=== PATIENT | male | born 1950 | race Caucasian/White ===

== ENCOUNTER → 2019-04-21 | Outpatient (CLI) | payer MEDICARE ==
--- NOTE | 2019-04-21 10:30 | US ---
EXAMINATION TYPE: US carotid duplex BILAT DATE OF EXAM: 04/21/2019 COMPARISON: NONE CLINICAL HISTORY: I65.23 Occlusion and stenosis of bilateral carotid. Stenosis EXAM MEASUREMENTS: RIGHT: Peak Systolic Velocity (PSV) cm/sec ----- Right CCA: 74.4 ----- Right ICA: 80.2 ----- Right ECA: 112.5 ICA/CCA ratio: 0.9 RIGHT: End Diastole cm/sec ----- Right CCA: 28.5 ----- Right ICA: 31.7 ----- Right ECA: 25.2 LEFT: Peak Systolic Velocity (PSV) cm/sec ----- Left CCA: 91.5 ----- Left ICA: 94.7 ----- Left ECA: 73.7 ICA/CCA ratio: 0.8 LEFT: End Diastole cm/sec ----- Left CCA: 33.3 ----- Left ICA: 46.2 ----- Left ECA: 28.5 VERTEBRALS (direction of flow): Right Vertebral: Antegrade Left Vertebral: Antegrade Rhythm: Normal No significant stenosis seen IMPRESSION: Mild degree of grayscale atheromatous plaquing with no sonographically evident hemodynam ically significant stenosis within either visualized carotid arterial system. Criteria for Assigning % of Stenosis / Diameter reduction (Estimation based on the indirect measurements of the internal carotid artery velocities (ICA PSV). 1. Normal (no stenosis)=ICA PSV < 125 cm/s: ratio < 2.0: ICA EDV<40 cm/s. 2. Less than 50% stenosis=ICA PSV < 125 cm/s: ratio < 2.0: ICA EDV<40 cm/s. 3. 50 to 69% stenosis=ICA PSV of 125 to 230 cm/s: ration 2.0 ? 4.0: ICA EDV 40-100 cm/s. 4. Greater than 70% stenosis to near occlusion= ICA PSV > 230 cm/s: ratio > 4.0: ICA EDV > 100 cm/s. 5. Near occlusion= ICA PSV velocities may be low or undetectable: variable ratio and ICA EDV. 6. Total occlusion=unable to detect flow.
== END | disposition home or self-care (01) ==
LOC: RADUSWWP 09:22
PROVIDERS: ATTEND Internal Medicine
DX: I67.2 Cerebral atherosclerosis (principal)
CPT/HCPCS: 93880

== ENCOUNTER → 2022-10-12 | Outpatient (CLI) | payer MEDICARE ==
[~2022-10-12] MED LIST: REGADENOSON 0.4 MG/5 ML SYRINGE IV PRN
--- NOTE | 2022-10-12 14:22 | NM ---
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 The patient received 0.4mg Lexiscan, 24.0 mCi Tc 99m Sestamibi - Stress images obtained [address] injection FINDINGS: Review of stress and rest SPECT images demonstrates fixed perfusion defect throughout the entire infe rior wall as well as the mid to basal inferoseptal wall. No discrete reversibility is seen. Gated preet lysis shows normal wall motion with an estimated left ventricular ejection fraction of 65 %. TID IMPRESSION: Large area of fixed perfusion defect along the inferior wall suspected to be on the basis of diaphragmatic attenuation artifact rather than old infarct. Clinically correlate. No discrete rev ersibility is seen.
--- NOTE | 2022-10-13 11:54 | CA ---
Lexiscan Nuclear Stress Test Report Name: Mazin Shah Exam Date: 10/12/2022 10:34 Exam Location: [place] Stress Ht (in): 66 Wt (lb): 192 BSA: 1.97 Ordering Phys: Criss Thomas MD Referring Phys: Martha, Technologist: Paolo Rivera Age: 72 Gender: M : 1950 Procedure CPT: Indications: I25.10 ATHSCL HEART DISEASE OF [place] CORONARY ART ICD-10 Codes: Patient History: ELEVATED CHOLESTEROL, FAMILY HX OF HEART DISEASE Medications: LIPITOR,,,,,, ZETIA,,,,,, VIT D,,,,,, K2,,,,,, B12,,,,,, ZINC,,,,, Meds past 24 hrs: Pretest Chest Pain: STRESS TEST Lexiscan Protocol Exercise Duration (min:sec): 01:[address] Depressions (mm): Angina Score: Byers Score: Resting HR (bpm): 64 Peak HR (bpm): 102 Resting BP (mmHg): 115 / 76 Peak BP (mmHg): 114 / 77 MPHR: 148 Target HR: 126 % MPHR: 69 METS: 1.0 Total Dose: Peak Dose: Atropine: Double Product: 83794 BP Response: Stress Termination: INFUSION COMPLETE Stress Symptoms: NO SYMPTOMS Stress Summary: ECG ANALYSIS Resting ECG: Stress ECG: CONCLUSIONS Nondiagnostic electrocardiogram stress testing Dr. Anthony Millard MD (Electronically Signed) Final Date: 13 October 2022 11:53
== END | disposition home or self-care (01) ==
LOC: RADNMMAIN 08:20
PROVIDERS: ATTEND Internal Medicine
DX: I25.10 Atherosclerotic heart disease of native coronary artery without angina pectoris (principal)
CPT/HCPCS: 93017; 78452; A9500; J2785

== ENCOUNTER → 2023-03-23 | Outpatient (CLI) | payer MEDICARE ==
--- NOTE | 2023-03-24 11:07 | CA ---
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 LV Systolic Volume MOD 4C 53.6 cm??? LV Ejection Fraction MOD 4C 47.2 % LV Cardiac Index MOD 4C 1646.5 cm???/min???m??? LV Diastolic Length 4C 8.0 cm LV Systolic Length 4C 6.9 cm LV Diastolic Volume MOD 2C 77.5 cm??? LV Systolic Volume MOD 2C 33.3 cm??? LV Ejection Fraction MOD 2C 57.0 % LV Cardiac Index MOD 2C 1515.1 cm???/min???m??? LV Diastolic Length 2C 7.7 cm LV Systolic Length 2C 6.5 cm LA Volume 39.3 cm??? 18 - 58 / 22 - 52 cm??? LA Volume Index 19.2 cm???/m??? 16 - 28 cm???/m??? M-MODE Aortic Root Diameter MM 3.9 cm MV E Point Septal Separation 0.5 cm AV Cusp Separation MM 2.1 cm DOPPLER AV Peak Velocity 121.5 cm/s AV Peak Gradient 5.9 mmHg MV Area PHT 3.0 cm??? Mitral E Point Velocity 90.0 cm/s Mitral A Point Velocity 54.4 cm/s Mitral E to A Ratio 1.7 MV Deceleration Time 251.1 ms MV E' Velocity 7.6 cm/s Mitral E to MV E' Ratio 11.9 TR Peak Velocity 178.5 cm/s TR Peak Gradient 12.7 mmHg Right Ventricular Systolic Press 17.7 mmHg FINDINGS Left Ventricle Left ventricular ejection fraction is estimated at 55-60 %. Left ventricular cavity size normal. Left ventricular wall thickness normal. Right Ventricle Mild right ventricular dilatation. Right ventricular systolic pressure within normal limits. Right Atrium Normal right atrial size. Left Atrium Normal left atrial size. Mitral Valve Structurally normal mitral valve. Trace mitral regurgitation. Aortic Valve Trileaflet aortic valve. No aortic valve stenosis or regurgitation. Tricuspid Valve Structurally normal tricuspid valve. Trace tricuspid regurgitation. Pulmonic Valve Pulmonic valve not well visualized. Pericardium No pericardial effusion. Aorta Mild aortic dilatation at the level of the sinuses of valsalva 39 mm CONCLUSIONS Technically difficult study for interpretation Normal LV systolic function Previewed by: Dr. Anthony Millard MD (Electronically Signed) Final Date: 24 March 2023 11:07
== END | disposition home or self-care (01) ==
LOC: RADECHMAIN 13:27
PROVIDERS: ATTEND Internal Medicine
DX: I71.21 Aneurysm of the ascending aorta, without rupture (principal)
CPT/HCPCS: 93306

== ENCOUNTER → 2023-09-07 | Outpatient (CLI) | payer MEDICARE ==
--- NOTE | 2023-09-07 13:32 | CT ---
EXAMINATION TYPE: CT angio chest DATE OF EXAM: 09/07/2023 12:58 PM COMPARISON: None HISTORY: Aneurysm of ascending aorta w/o rupture. CT DLP: 790.6 mGycm Automated exposure control for dose reduction was used. CONTRAST: CTA scan of the thorax is performed with IV Contrast, patient injected with 100 mL of Isovue 370, pul monary embolism protocol. . FINDINGS: There is no suspicious lung mass or nodule. There is no abnormal airspace/consolidative density or abnormal interstitial density. There is no pleural effusion, pleural thickening or pneumothorax. There is mild aneurysmal dilatation of the ascending thoracic aorta which measures 4.2 cm. There is n o mediastinal, hilar or axillary adenopathy. No focal osseous lesions are seen. Limited scanning through the upper abdomen reveals no gross abnormality. IMPRESSION: 1. Mild aneurysmal dilatation of ascending thoracic aorta which measures 4.2 cm. 2. No suspicious lung mass or nodule. 3. No acute cardiopulmonary disease.
== END | disposition home or self-care (01) ==
LOC: RADCTMAIN 10:56
PROVIDERS: ATTEND Internal Medicine
DX: I71.21 Aneurysm of the ascending aorta, without rupture (principal)
CPT/HCPCS: 71275; Q9967

== ENCOUNTER → 2024-11-28 | Outpatient (CLI) | payer MEDICARE ==
[2024-11-28 07:08] LABS: African American GFR (CKD) 81 (>60 ml/min/1.73 sqM); Blood Urea Nitrogen 18 mg/dL (9-20); Non-African American GFR(CKD) 70 (>60 ml/min/1.73 sqM)
--- NOTE | 2024-11-29 11:40 | CT ---
EXAMINATION TYPE: CT urogram wo/w con DATE OF EXAM: 11/28/2024 8:37 AM COMPARISON: None. CLINICAL INDICATION: Male, 74 years old with history of R82.89 OTHER ABN FINDINGS ON CYTOLOG AND HIST OLOG, Abnormal cell count of urine TECHNIQUE: Axial images were obtained from above the diaphragm to the pubic rami in the axial plane a t 5 mm thick sections. Reconstructed images are reviewed on the computer in the coronal plane. Thre e-D reconstructed images through the renal collecting system ureters bladder are performed. Long khushi y images were obtained. CONTRAST: 100 mL of Isovue 370. Study performed DLP: 2429.70 mGycm, Automated exposure control for dose reduction was used. FINDINGS: Limited CT sections are obtained the lung bases. The lung bases are clear. CT ABDOMEN: Liver: Normal Spleen: Normal Pancreas: Normal Adrenal glands: The adrenal glands are normal. Gallbladder: Normal Kidneys: No masses are evident. No hydronephrosis is present. No cysts are present. 3-D urogram: Renal calyces infundibula and renal pelves are normal. Ureters within the visualized por tions have normal caliber course and contour towards the urinary bladder. No hydronephrosis or hydrou reter is evident. Some vascular calcification is noted near the left distal ureter and iliac region Aorta: Vascular calcification is within the aorta. Inferior vena cava: Normal. CT PELVIS: Loops of bowel within the abdomen and pelvis are normal. There are loops of bowel which are incom pletely distended or lack oral contrast limiting their evaluation. Appendix: Normal as visualized. Urinary bladder: Normal. Genitourinary structures: Prostate is prominent Osseous structures: No suspicious lytic or sclerotic lesions. IMPRESSION: 1. No suspicious renal or ureteral anomaly CT urogram. [facility], , 11/29/2024 11:38 AM
== END | disposition home or self-care (01) ==
LOC: RADCTMAIN 06:22
PROVIDERS: ATTEND Internal Medicine
DX: R82.89 Other abnormal findings on cytological and histological examination of urine (principal)
CPT/HCPCS: 82565; 84520; 74178; 36415; 74400; Q9967